=== PATIENT | male | born 1985 | race African-American/Black ===

== ENCOUNTER 2016-12-15 12:01 | Day surgery (SDC) | payer BC ==
[~2016-12-15] VITALS: Ht 193 cm; Wt 82.4 kg
[2016-12-15 13:50] VITALS: Ht 193 cm; Wt 82.4 kg
[2016-12-15] MEDS ORDERED: PROPOFOL 40 ML ONE (14:52)
[2016-12-15] MEDS ORDERED: LIDOCAINE 2% (SDV) 5 ML INJ ONE (14:52)
[2016-12-15 15:10] VITALS: BP 142/88; PULSE 88; RESP 18
[2016-12-15] MEDS ORDERED: PROPOFOL 60 ML ONE (15:27)
--- NOTE | 2016-12-15 16:00 | GILP ---
DATE OF PROCEDURE: 12/15/2016 NAME OF PROCEDURES: Colonoscopy and biopsy. SURGEON: Lance Johnson MD PREOPERATIVE DIAGNOSES: Chronic diarrhea. POSTOPERATIVE DIAGNOSES 1. Colonoscopy all the way to the cecum and into the terminal ileum. 2. Normal terminal ileum. 3. Internal hemorrhoids. 4. Random biopsies were taken to rule out microscopic colitis. INDICATION FOR THE PROCEDURE: Mr. Beto Banegas is a 31-year-old male patient who had chronic diarr hea and lower abdominal pain. Patient was scheduled for colonoscopy for further evaluation. The procedure and possible complications are well explained to the patient, he understood and consen anne-marie to the procedure. DESCRIPTION OF PROCEDURE: Under the influence of anesthesia, the colonoscope was carefully introduc ed in the rectum and under direct vision, it was advanced all the way to the cecum and through the i leocecal valve into the terminal ileum. FINDINGS: The patient had normal terminal ileum. The colonic mucosa was normal. Random biopsies w ere taken to rule out microscopic colitis. The patient was noted to have internal hemorrhoids. He tolerated the procedures very well and there was no complication from the procedure. At the end of the procedure, he was awake with stable vital signs and he was discharged home to the care of his family. IMPRESSION: 1. Colonoscopy all the way to the cecum and into the terminal ileum. 2. Normal terminal ileum. 3. Normal colonic mucosa. 4. Random biopsies were taken to rule out microscopic colitis. 5. Internal hemorrhoids. PLAN: 1. Bentyl 10 mg p.o. t.i.d. p.r.n. for diarrhea and abdominal pain. 2. Await histopathology reports. Dictated By: LANCE AUGUSTINE/NOLBERTO Conf#: [id number] DID#: [id number]
[2016-12-15 16:11] VITALS: BP 119/83; PULSE 80; RESP 18
== END 2016-12-15 16:22 | disposition home or self-care (01) ==
LOC: GIL 12:01
PROVIDERS: ATTEND Internal Medicine Gastroenterology
DX: R19.7 Diarrhea, unspecified (principal); K64.8 Other hemorrhoids
CPT/HCPCS: 45380; 88305; Z7610

== ENCOUNTER 2018-03-26 15:55 | Emergency (ER) | END 2018-03-26 18:35 | disposition left against medical advice (07) ==